=== PATIENT | female | born 1950 | race Asian ===

== ENCOUNTER → 2017-02-12 | Outpatient (CLI) | payer MEDICARE, BC ==
[~2017-02-12] MED LIST: DIGO250T PO; DILT120C80 PO; DILT120T3 PO; LISI-167 PO; REGADENOSON 0.4 MG/5 ML SYRINGE ONE; SIMV20TA3 PO; WARF3TAB PO
== END | disposition home or self-care (01) ==
LOC: CFH 08:21
PROVIDERS: ATTEND Nurse Practitioner Family
DX: I48.2 Chronic atrial fibrillation (principal)
CPT/HCPCS: 78452; 93017; A9502; J2785

== ENCOUNTER 2018-01-18 20:06 | Inpatient (IN) | payer MEDICARE, BC ==
[~2018-01-18] VITALS: Ht 157.5 cm; Wt 66.2 kg
[~2018-01-18 20:06] MED LIST changes: -REGADENOSON 0.4 MG/5 ML SYRINGE ONE
[2018-01-18] MEDS ORDERED: OMNIPAQUE 350 MG/ML, 100ML BOTTLE ONE (20:38)
[2018-01-18] MEDS ORDERED: MORPHINE SULFATE 4 MG/ML, 1ML ONE (20:48)
[2018-01-18] MEDS ORDERED: METOCLOPRAMIDE 5 MG/ML, 2ML ONE (20:49)
[2018-01-18 20:57] LABS: BASOPHILS # (AUTO) 0.08 x10^3/uL (0-0.1); BASOPHILS % (AUTO) 1 % (0-1); EOSINOPHILS # (AUTO) 0.26 x10^3/uL (0-0.4); EOSINOPHILS % (AUTO) 3 % (1-7); LYMPHOCYTES # (AUTO) 3.43 x10^3/uL (1-3.4); LYMPHOCYTES % (AUTO) 41 % (22-44); MD NO; MEAN CORPUSCULAR HEMOGLOBIN 31.3 pg (27.0-34.8); MEAN CORPUSCULAR HGB CONC 33.6 g/dL (32.4-35.8); MEAN CORPUSCULAR VOLUME 93.2 fL (80-100); MEAN PLATELET VOLUME 9.6 fL (7.4-10.4); MONOCYTES # (AUTO) 0.75 x10^3/uL (0.2-0.8); MONOCYTES % (AUTO) 9 % (2-9); NEUTROPHILS # (AUTO) 3.88 x10^3/uL (1.8-6.8); NEUTROPHILS % (AUTO) 46 % (42-75); PLATELET COUNT 246 x10^3/uL (130-400); RED BLOOD COUNT 4.52 x10^6/uL (3.82-5.3); RED CELL DISTRIBUTION WIDTH 14.4 % (9.6-15.2)
[2018-01-18] MEDS ORDERED: MORPHINE SULFATE 4 MG/ML, 1ML IVPush PRN (21:00)
[2018-01-18] MEDS ORDERED: METOCLOPRAMIDE 5 MG/ML, 2ML IVPush ONE (21:00)
[2018-01-18] MEDS ORDERED: SODIUM CHLORIDE FLUSH 10ML SYR IVF ONE (21:00)
[2018-01-18 21:07] LABS: INTERNATIONAL NORMALIZED RATIO 2.37 (0.93-1.1)
[2018-01-18 21:09] LABS: ALANINE AMINOTRANSFERASE 29 U/L (12-78); ALBUMIN 4.1 g/dL (3.4-5.0); ANION GAP 10 mmol/L (5-15); CALCIUM 8.7 mg/dL (8.5-10.1); CHLORIDE 109 mmol/L (98-107); CREATININE 1.37 mg/dL (0.55-1.02)
[2018-01-18 21:13] LABS: ALKALINE PHOSPHATASE 103 U/L (45-117); BILIRUBIN,TOTAL 1.1 mg/dL (0.2-1.0); TOTAL PROTEIN 8.3 g/dL (6.4-8.2); TROPONIN I < 0.015 ng/mL (0.000-0.045)
[2018-01-18 21:29] LABS: CULTURE INDICATED? YES; MICROSCOPIC INDICATED
[2018-01-18] MEDS ORDERED: LISI-424 PO (22:22)
[2018-01-18] MEDS ORDERED: CEFTRIAXONE PMX 1GM/50ML 50 ML IV ONE (23:00)
[2018-01-18] MEDS ORDERED: WARFARIN MECH. VALVE PROTOCOL 2.5 to 3.5 XX PRN (23:00)
[2018-01-18] MEDS ORDERED: SODIUM CHLORIDE 0.9% 1,000 ML IV SCH (23:04)
[2018-01-18] MEDS ORDERED: POLYETHYLENE GLYCOL 17 GM PACKET PO PRN (23:30)
[2018-01-18] MEDS ORDERED: LABETALOL 5MG/ML, 20ML IVPush PRN (23:30)
[2018-01-18] MEDS ORDERED: ONDANSETRON 2MG/ML, 2ML IVPush PRN (23:30)
[2018-01-18] MEDS ORDERED: BISACODYL 10 MG SUPP PR PRN (23:30)
[2018-01-18] MEDS ORDERED: ENALAPRILAT 1.25 MG/ML, 2ML IVPush PRN (23:30)
[2018-01-18] MEDS ORDERED: POTASSIUM CHLORIDE 40 MEQ in SODIUM CHLORIDE 0.9% 500 ML IV ONE (23:30)
[2018-01-18] MEDS ORDERED: ACETAMINOPHEN 325 MG TABLET PO PRN (23:30)
[2018-01-18] MEDS ORDERED: CEFTRIAXONE PMX 2GM/50ML 50 ML IV SCH (23:30)
[2018-01-18] MEDS ORDERED: hydrALAzine 20 MG/ML, 1ML IVPush PRN (23:30)
[2018-01-18 23:31] LABS: HCT (SEDRATE) 42.1 % (34.6-47.8)
[2018-01-18 23:33] LABS: FREE T4 (FREE THYROXINE) 1.23 ng/dL (0.76-1.46); THYROID STIMULATING HORMONE 6.04 mIU/L (0.358-3.740)
[2018-01-18 23:43] VITALS: BP 127/75
[2018-01-18] MEDS ORDERED: WARFARIN 2 MG TABLET PO-COUM ONE (23:45)
[2018-01-19 00:05] VITALS: BP 127/75
[2018-01-19] MEDS: SIMVASTATIN 20 MG TABLET PO SCH ×2 (00:14→20:15)
[2018-01-19] MEDS ORDERED: MORPHINE SULFATE 4 MG/ML, 1ML ONE ×4 (00:23→23:47)
[2018-01-19] MEDS: morphine SULFATE 10 MG/ML, 1ML IVPush PRN ×4 (00:26→23:49)
[2018-01-19] MEDS: METRONIDAZOLE PMX 500MG/100ML 100 ML IV SCH ×3 (01:26→20:15)
[2018-01-19 05:05] LABS: BASOPHILS # (AUTO) 0.04 x10^3/uL (0-0.1); BASOPHILS % (AUTO) 0 % (0-1); EOSINOPHILS # (AUTO) 0.01 x10^3/uL (0-0.4); EOSINOPHILS % (AUTO) 0 % (1-7); LYMPHOCYTES # (AUTO) 0.71 x10^3/uL (1-3.4); LYMPHOCYTES % (AUTO) 6 % (22-44); MD NO; MEAN CORPUSCULAR VOLUME 94.1 fL (80-100); MEAN PLATELET VOLUME 9.3 fL (7.4-10.4); MONOCYTES # (AUTO) 0.48 x10^3/uL (0.2-0.8); MONOCYTES % (AUTO) 4 % (2-9); NEUTROPHILS # (AUTO) 10.82 x10^3/uL (1.8-6.8); NEUTROPHILS % (AUTO) 90 % (42-75); PLATELET COUNT 222 x10^3/uL (130-400); RED BLOOD COUNT 4.34 x10^6/uL (3.82-5.3); RED CELL DISTRIBUTION WIDTH 14.4 % (9.6-15.2)
[2018-01-19 05:17] LABS: ALANINE AMINOTRANSFERASE 27 U/L (12-78); ALBUMIN 3.7 g/dL (3.4-5.0); ANION GAP 8 mmol/L (5-15); CALCIUM 8.4 mg/dL (8.5-10.1); CHLORIDE 111 mmol/L (98-107); CREATININE 0.92 mg/dL (0.55-1.02)
[2018-01-19 05:20] LABS: ALKALINE PHOSPHATASE 93 U/L (45-117); BILIRUBIN,TOTAL 0.8 mg/dL (0.2-1.0); CHOL/HDL RATIO 2.1; CHOLESTEROL, TOTAL 137 mg/dL (140-239); HDL CHOL % 48 % (28-40); HDL CHOLESTEROL (DIRECT) 66 mg/dL (40-60); LDL CHOLESTEROL,CALCULATED 57 mg/dL (54-169); LDL/HDL RATIO 0.9 (0.5-3.0); TOTAL PROTEIN 7.6 g/dL (6.4-8.2); TRIGLYCERIDES 72 mg/dL (50-200); VLDL CHOLESTEROL 14 mg/dL (0-25)
[2018-01-19 07:30] VITALS: BP 143/76
[2018-01-19 08:33] LABS: INTERNATIONAL NORMALIZED RATIO 2.32 (0.93-1.1); PROTHROMBIN TIME 23.5 Seconds (9.6-11.5)
[2018-01-19] MEDS ORDERED: HEPARIN 25,000 UNITS/500ML PMX 500 ML IV PRN ×2 (09:00→09:30)
[2018-01-19] MEDS ORDERED: DO NOT GIVE HEPARIN BOLUS MC SCH (09:30)
[2018-01-19 12:09] VITALS: BP 157/77
[2018-01-19] MEDS: LISINOPRIL 10 MG TABLET PO SCH (14:44)
[2018-01-19] MEDS: DILTIAZEM 120 MG CAP.ER.24H PO SCH (14:44)
[2018-01-19] MEDS: SODIUM CHLORIDE 0.9% 1,000 ML IV SCH (17:52)
[2018-01-19 19:25] VITALS: BP 124/70
[2018-01-19] MEDS ORDERED: CEFTRIAXONE 2 GM in DEXTROSE 5% 50 ML IV SCH (22:30)
[2018-01-20] VITALS (15 sets, daily range): BP systolic 83–150; BP diastolic 50–87
[2018-01-20] MEDS ORDERED: MORPHINE SULFATE 4 MG/ML, 1ML ONE ×3 (03:55→07:45)
[2018-01-20] MEDS: morphine SULFATE 10 MG/ML, 1ML IVPush PRN ×3 (03:57→07:48)
[2018-01-20] MEDS: SODIUM CHLORIDE 0.9% 1,000 ML IV SCH (03:58)
[2018-01-20] MEDS: METRONIDAZOLE PMX 500MG/100ML 100 ML IV SCH ×2 (03:58→12:00)
[2018-01-20 04:46] LABS: BASOPHILS # (AUTO) 0.03 x10^3/uL (0-0.1); BASOPHILS % (AUTO) 0 % (0-1); EOSINOPHILS # (AUTO) 0.04 x10^3/uL (0-0.4); EOSINOPHILS % (AUTO) 0 % (1-7); LYMPHOCYTES # (AUTO) 1.31 x10^3/uL (1-3.4); LYMPHOCYTES % (AUTO) 11 % (22-44); MD NO; MEAN CORPUSCULAR HEMOGLOBIN 31.4 pg (27.0-34.8); MEAN CORPUSCULAR HGB CONC 32.9 g/dL (32.4-35.8); MEAN CORPUSCULAR VOLUME 95.6 fL (80-100); MEAN PLATELET VOLUME 9.5 fL (7.4-10.4); MONOCYTES % (AUTO) 3 % (2-9); NEUTROPHILS # (AUTO) 9.86 x10^3/uL (1.8-6.8); NEUTROPHILS % (AUTO) 85 % (42-75); PLATELET COUNT 200 x10^3/uL (130-400); RED CELL DISTRIBUTION WIDTH 14.6 % (9.6-15.2)
[2018-01-20 04:47] LABS: INTERNATIONAL NORMALIZED RATIO 3.41 (0.93-1.1); PROTHROMBIN TIME 34.3 Seconds (9.6-11.5)
[2018-01-20 06:39] LABS: ALANINE AMINOTRANSFERASE 20 U/L (12-78); ALBUMIN 3.1 g/dL (3.4-5.0); ANION GAP 9 mmol/L (5-15); CALCIUM 8.1 mg/dL (8.5-10.1); CHLORIDE 113 mmol/L (98-107); CREATININE 0.85 mg/dL (0.55-1.02)
[2018-01-20 06:41] LABS: ALKALINE PHOSPHATASE 78 U/L (45-117); BILIRUBIN,TOTAL 1.2 mg/dL (0.2-1.0)
[2018-01-20] MEDS: DILTIAZEM 120 MG CAP.ER.24H PO SCH (09:00)
[2018-01-20] MEDS: LISINOPRIL 10 MG TABLET PO SCH (09:00)
[2018-01-20] MEDS ORDERED: BUPIVACAINE/PF 0.5% ONE (10:33)
[2018-01-20] MEDS ORDERED: MIDAZOLAM 1 MG/ML, 2ML ONE (11:11)
[2018-01-20] MEDS ORDERED: CEFOTETAN 2 GM ONE (11:35)
[2018-01-20] MEDS ORDERED: SUGAMMADEX 200 MG/2 ML IVPush ONE ×2 (11:35→13:40)
[2018-01-20] MEDS ORDERED: ROCURONIUM 10 MG/ML,10ML ONE (11:35)
[2018-01-20] MEDS ORDERED: PROPOFOL 10 MG/ML, 20ML ONE (11:35)
[2018-01-20] MEDS ORDERED: FENTANYL PF 250 MCG/5ML ONE ×2 (11:54→12:27)
[2018-01-20] MEDS ORDERED: PHYTONADIONE 10 MG in SODIUM CHLORIDE 0.9% 50 ML IV ONE (12:30)
[2018-01-20 12:49] LABS: INTERNATIONAL NORMALIZED RATIO 2.1 (0.93-1.1); PROTHROMBIN TIME 21.3 Seconds (9.6-11.5)
[2018-01-20 13:01] LABS: BASOPHILS % (AUTO) 0 % (0-1); EOSINOPHILS # (AUTO) 0.02 x10^3/uL (0-0.4); EOSINOPHILS % (AUTO) 0 % (1-7); LYMPHOCYTES # (AUTO) 1.22 x10^3/uL (1-3.4); LYMPHOCYTES % (AUTO) 12 % (22-44); MD NO; MEAN CORPUSCULAR HEMOGLOBIN 30.9 pg (27.0-34.8); MEAN CORPUSCULAR HGB CONC 32.9 g/dL (32.4-35.8); MEAN CORPUSCULAR VOLUME 94.1 fL (80-100); MEAN PLATELET VOLUME 9.2 fL (7.4-10.4); MONOCYTES # (AUTO) 0.24 x10^3/uL (0.2-0.8); MONOCYTES % (AUTO) 2 % (2-9); NEUTROPHILS # (AUTO) 9.14 x10^3/uL (1.8-6.8); NEUTROPHILS % (AUTO) 86 % (42-75); PLATELET COUNT 157 x10^3/uL (130-400); RED BLOOD COUNT 3.42 x10^6/uL (3.82-5.3); RED CELL DISTRIBUTION WIDTH 14.6 % (9.6-15.2)
[2018-01-20] MEDS ORDERED: MEPERIDINE/PF 25MG/0.5ML IVPush PRN (13:30)
[2018-01-20] MEDS ORDERED: FENTANYL PF 100 MCG/2ML IV PRN (13:30)
[2018-01-20] MEDS ORDERED: LABETALOL 5MG/ML, 20ML IV PRN (13:30)
[2018-01-20] MEDS ORDERED: morphine SULFATE 10 MG/ML, 1ML IV PRN (13:30)
[2018-01-20] MEDS ORDERED: ONDANSETRON 2MG/ML, 2ML IVPush PRN (13:30)
[2018-01-20] MEDS ORDERED: HYDROmorphone 2 MG/ML, 1ML ONE (13:55)
[2018-01-20] MEDS ORDERED: FENTANYL PF 100 MCG/2ML ONE (13:55)
[2018-01-20] MEDS: HYDROmorphone 1 MG/ML, 1ML IV PRN ×2 (14:19→15:49)
[2018-01-20] MEDS ORDERED: SCOPOLAMINE PATCH, 1.5MG PATCH.TD72 TD PRN (17:00)
[2018-01-20] MEDS ORDERED: CALCIUM CARBONATE 500 MG TAB.CHEW PO PRN (17:00)
[2018-01-20] MEDS ORDERED: DEXAMETHASONE 4 MG/ML, 1ML IVPush PRN (17:00)
[2018-01-20] MEDS ORDERED: DIPHENHYDRAMINE 50 MG/ML, 1ML IVPush PRN (17:00)
[2018-01-20] MEDS ORDERED: ONDANSETRON 2MG/ML, 2ML IV PRN (17:00)
[2018-01-20] MEDS: ACETAMINOPHEN 500 MG TABLET PO SCH ×2 (18:11→23:05)
[2018-01-20] MEDS: PIPERACILLIN/TAZO/PMX 3.375GM 50 ML IV SCH ×2 (18:11→23:04)
[2018-01-20] MEDS: D5%-0.45NACL+KCL 20MEQ 1,000 ML IV SCH (18:30)
[2018-01-20] MEDS ORDERED: SODIUM CHLORIDE 0.9% 500 ML IV ONE (20:23)
[2018-01-20] MEDS ORDERED: SODIUM CHLORIDE 0.9%, 500ML IVBOLUS STA (21:50)
[2018-01-20] MEDS: SIMVASTATIN 20 MG TABLET PO SCH (23:04)
[2018-01-20 23:28] LABS: BASOPHILS # (AUTO) 0.02 x10^3/uL (0-0.1); BASOPHILS % (AUTO) 0 % (0-1); EOSINOPHILS % (AUTO) 0 % (1-7); LYMPHOCYTES % (AUTO) 10 % (22-44); MD NO; MEAN CORPUSCULAR HEMOGLOBIN 31.1 pg (27.0-34.8); MEAN CORPUSCULAR HGB CONC 32.6 g/dL (32.4-35.8); MEAN CORPUSCULAR VOLUME 95.3 fL (80-100); MONOCYTES # (AUTO) 0.57 x10^3/uL (0.2-0.8); MONOCYTES % (AUTO) 6 % (2-9); NEUTROPHILS # (AUTO) 8.02 x10^3/uL (1.8-6.8); NEUTROPHILS % (AUTO) 84 % (42-75); PLATELET COUNT 184 x10^3/uL (130-400); RED BLOOD COUNT 2.58 x10^6/uL (3.82-5.3); RED CELL DISTRIBUTION WIDTH 14.8 % (9.6-15.2)
[2018-01-20 23:35] LABS: INTERNATIONAL NORMALIZED RATIO 1.48 (0.93-1.1); PROTHROMBIN TIME 15.1 Seconds (9.6-11.5)
[2018-01-21] VITALS (14 sets, daily range): BP systolic 83–126; BP diastolic 54–76
[2018-01-21] MEDS ORDERED: HEPARIN 25,000 UNITS/500ML PMX 500 ML IV PRN (00:30)
[2018-01-21] MEDS ORDERED: HEPARIN 5,000 UNITS/ML, 1ML IV PRN (00:30)
[2018-01-21] MEDS: ACETAMINOPHEN 500 MG TABLET PO SCH ×4 (05:28→23:03)
[2018-01-21] MEDS: PIPERACILLIN/TAZO/PMX 3.375GM 50 ML IV SCH ×4 (05:29→23:02)
[2018-01-21 05:38] LABS: BASOPHILS # (AUTO) 0.09 x10^3/uL (0-0.1); BASOPHILS % (AUTO) 1 % (0-1); EOSINOPHILS # (AUTO) 0.01 x10^3/uL (0-0.4); EOSINOPHILS % (AUTO) 0 % (1-7); LYMPHOCYTES # (AUTO) 1.33 x10^3/uL (1-3.4); LYMPHOCYTES % (AUTO) 16 % (22-44); MD NO; MEAN CORPUSCULAR HGB CONC 34.4 g/dL (32.4-35.8); MEAN CORPUSCULAR VOLUME 93.1 fL (80-100); MEAN PLATELET VOLUME 9.4 fL (7.4-10.4); MONOCYTES # (AUTO) 0.66 x10^3/uL (0.2-0.8); MONOCYTES % (AUTO) 8 % (2-9); NEUTROPHILS # (AUTO) 6.09 x10^3/uL (1.8-6.8); NEUTROPHILS % (AUTO) 74 % (42-75); PLATELET COUNT 134 x10^3/uL (130-400); RED BLOOD COUNT 2.44 x10^6/uL (3.82-5.3); RED CELL DISTRIBUTION WIDTH 14.4 % (9.6-15.2)
[2018-01-21 05:47] LABS: INTERNATIONAL NORMALIZED RATIO 1.39 (0.93-1.1); PROTHROMBIN TIME 14.2 Seconds (9.6-11.5)
[2018-01-21 06:00] LABS: CHLORIDE 118 mmol/L (98-107)
[2018-01-21 06:06] LABS: ALANINE AMINOTRANSFERASE 14 U/L (12-78); ALBUMIN 2.1 g/dL (3.4-5.0); ALKALINE PHOSPHATASE 43 U/L (45-117); ANION GAP 7 mmol/L (5-15); TOTAL PROTEIN 4.6 g/dL (6.4-8.2)
[2018-01-21 06:19] LABS: CALCIUM 5.9 mg/dL (8.5-10.1)
[2018-01-21] MEDS: DILTIAZEM 120 MG CAP.ER.24H PO SCH (08:00)
[2018-01-21] MEDS ORDERED: DIGOXIN 0.125 MG TABLET PO SCH (12:00)
[2018-01-21] MEDS: D5%-0.45NACL+KCL 20MEQ 1,000 ML IV SCH (14:57)
[2018-01-21] MEDS ORDERED: DIGOXIN 0.125 MG TABLET PO ONE (18:00)
[2018-01-21] MEDS: OXYcodone IR 5MG TABLET PO PRN (20:21)
[2018-01-21] MEDS: CALCIUM CARBONATE 500 MG TABLET PO SCH (21:04)
[2018-01-21] MEDS: SIMVASTATIN 20 MG TABLET PO SCH (21:04)
[2018-01-22 04:27] VITALS: BP 102/67
[2018-01-22] MEDS: ACETAMINOPHEN 500 MG TABLET PO SCH ×4 (05:41→21:59)
[2018-01-22] MEDS: PIPERACILLIN/TAZO/PMX 3.375GM 50 ML IV SCH ×4 (05:42→23:01)
[2018-01-22 06:05] LABS: INTERNATIONAL NORMALIZED RATIO 1.17 (0.93-1.1)
[2018-01-22 06:11] LABS: ALBUMIN 2.7 g/dL (3.4-5.0)
[2018-01-22 06:18] LABS: ALANINE AMINOTRANSFERASE 19 U/L (12-78); ANION GAP 7 mmol/L (5-15); CHLORIDE 108 mmol/L (98-107); CREATININE 0.68 mg/dL (0.55-1.02)
[2018-01-22 06:33] LABS: ALKALINE PHOSPHATASE 57 U/L (45-117); BILIRUBIN,TOTAL 1.5 mg/dL (0.2-1.0); TOTAL PROTEIN 6.3 g/dL (6.4-8.2)
[2018-01-22 06:57] VITALS: BP 114/75
[2018-01-22 07:02] LABS: MEAN CORPUSCULAR HEMOGLOBIN 31.1 pg (27.0-34.8); MEAN CORPUSCULAR HGB CONC 33.5 g/dL (32.4-35.8); MEAN CORPUSCULAR VOLUME 92.9 fL (80-100); PLATELET COUNT 179 x10^3/uL (130-400); RED BLOOD COUNT 3.15 x10^6/uL (3.82-5.3); RED CELL DISTRIBUTION WIDTH 14.6 % (9.6-15.2)
[2018-01-22] MEDS ORDERED: DIGOXIN 0.25 MG TABLET PO SCH (09:00)
[2018-01-22] MEDS: DIGOXIN 0.125 MG TABLET PO SCH (10:05)
[2018-01-22] MEDS: DILTIAZEM 120 MG CAP.ER.24H PO SCH (10:05)
[2018-01-22] MEDS: CALCIUM CARBONATE 500 MG TABLET PO SCH ×2 (10:05→21:59)
[2018-01-22] MEDS: D5%-0.45NACL+KCL 20MEQ 1,000 ML IV SCH (11:00)
[2018-01-22 14:45] VITALS: BP 143/90
[2018-01-22] MEDS: DOCUSATE 100 MG CAPSULE PO PRN ×2 (14:50→21:59)
[2018-01-22] MEDS: OXYcodone IR 5MG TABLET PO PRN (17:05)
[2018-01-22 19:57] VITALS: BP 101/67
[2018-01-22] MEDS ORDERED: POLYETHYLENE GLYCOL 17 GM PACKET NG PRN (20:30)
[2018-01-22] MEDS: SIMVASTATIN 20 MG TABLET PO SCH (21:58)
[2018-01-23 03:59] VITALS: BP 112/72
[2018-01-23] MEDS: PIPERACILLIN/TAZO/PMX 3.375GM 50 ML IV SCH ×4 (05:19→23:19)
[2018-01-23] MEDS: ACETAMINOPHEN 500 MG TABLET PO SCH ×4 (05:20→20:40)
[2018-01-23 05:53] LABS: BASOPHILS # (AUTO) 0.02 x10^3/uL (0-0.1); BASOPHILS % (AUTO) 0 % (0-1); EOSINOPHILS # (AUTO) 0.11 x10^3/uL (0-0.4); EOSINOPHILS % (AUTO) 1 % (1-7); LYMPHOCYTES # (AUTO) 1.37 x10^3/uL (1-3.4); LYMPHOCYTES % (AUTO) 14 % (22-44); MD NO; MEAN CORPUSCULAR HGB CONC 34.1 g/dL (32.4-35.8); MEAN CORPUSCULAR VOLUME 93.8 fL (80-100); MEAN PLATELET VOLUME 9.1 fL (7.4-10.4); MONOCYTES # (AUTO) 0.72 x10^3/uL (0.2-0.8); MONOCYTES % (AUTO) 7 % (2-9); NEUTROPHILS # (AUTO) 7.78 x10^3/uL (1.8-6.8); NEUTROPHILS % (AUTO) 78 % (42-75); PLATELET COUNT 192 x10^3/uL (130-400); RED BLOOD COUNT 2.96 x10^6/uL (3.82-5.3); RED CELL DISTRIBUTION WIDTH 14.6 % (9.6-15.2)
[2018-01-23 05:56] LABS: INTERNATIONAL NORMALIZED RATIO 1.08 (0.93-1.1); PROTHROMBIN TIME 11.1 Seconds (9.6-11.5)
[2018-01-23 06:06] LABS: CHLORIDE 106 mmol/L (98-107)
[2018-01-23 06:13] LABS: ANION GAP 8 mmol/L (5-15); CALCIUM 8.4 mg/dL (8.5-10.1); CREATININE 0.73 mg/dL (0.55-1.02)
[2018-01-23 07:04] VITALS: BP 135/72
[2018-01-23] MEDS ORDERED: HEPARIN wt. based STROKE protocol MC PRN (09:30)
[2018-01-23] MEDS: DILTIAZEM 120 MG CAP.ER.24H PO SCH (09:40)
[2018-01-23] MEDS: DIGOXIN 0.125 MG TABLET PO SCH (09:40)
[2018-01-23] MEDS: CALCIUM CARBONATE 500 MG TABLET PO SCH ×2 (09:40→20:40)
[2018-01-23] MEDS ORDERED: HEPARIN 5,000 UNITS/ML, 1ML ONE (10:34)
[2018-01-23] MEDS: HEPARIN 25,000 UNITS/500ML PMX 500 ML IV PRN (10:45)
[2018-01-23 12:37] LABS: OCCULT BLOOD POSITIVE (NEGATIVE)
[2018-01-23 14:44] VITALS: BP 134/82
[2018-01-23 18:50] VITALS: BP 125/76
[2018-01-23] MEDS: SIMVASTATIN 20 MG TABLET PO SCH (20:41)
[2018-01-24 00:09] LABS: MD YES; MEAN CORPUSCULAR HEMOGLOBIN 32.1 pg (27.0-34.8); MEAN CORPUSCULAR HGB CONC 33.9 g/dL (32.4-35.8); MEAN CORPUSCULAR VOLUME 94.5 fL (80-100); MEAN PLATELET VOLUME 9.1 fL (7.4-10.4); PLATELET COUNT 194 x10^3/uL (130-400); RED BLOOD COUNT 3.03 x10^6/uL (3.82-5.3); RED CELL DISTRIBUTION WIDTH 14.2 % (9.6-15.2)
[2018-01-24 00:12] LABS: EOS% (MANUAL) 5 % (1-7); LYMPH#(MANUAL) 2.18 x10^3/uL (1-3.4); LYMPHS% (MANUAL) 28 % (22-44); MONOS#(MANUAL) 0.78 x10^3/uL (0.3-2.7); MONOS% (MANUAL) 10 % (2-9); SEG#(MANUAL) 4.37 x10^3/uL (1.8-6.8); SEGS% (MANUAL) 56 % (42-75)
[2018-01-24 00:13] LABS: ANISOCYTOSIS 1+; BASOS#(MANUAL) 0.08 x10^3/uL (0-0.1); BASOS% (MANUAL) 1 % (0-1); EOS#(MANUAL) 0.39 x10^3/uL (0.0-0.4); NRBC % (MANUAL) 6 % (0-1); OVALOCYTES 1+; POLYCHROMASIA 1+
[2018-01-24 00:15] LABS: <PLATELET ESTIMATE> ADEQUATE; <PLT MORPHOLOGY> NORMAL PLT MORPH
[2018-01-24 01:50] VITALS: BP 131/60
[2018-01-24] MEDS: PIPERACILLIN/TAZO/PMX 3.375GM 50 ML IV SCH ×3 (05:31→11:00)
[2018-01-24] MEDS: ACETAMINOPHEN 500 MG TABLET PO SCH ×4 (05:31→22:46)
[2018-01-24 07:03] LABS: INTERNATIONAL NORMALIZED RATIO 1.11 (0.93-1.1); PROTHROMBIN TIME 11.4 Seconds (9.6-11.5)
[2018-01-24 07:20] VITALS: BP 129/72
[2018-01-24] MEDS: DILTIAZEM 120 MG CAP.ER.24H PO SCH (07:54)
[2018-01-24] MEDS: DIGOXIN 0.125 MG TABLET PO SCH (07:54)
[2018-01-24] MEDS: CALCIUM CARBONATE 500 MG TABLET PO SCH ×2 (07:54→20:56)
[2018-01-24] MEDS: HEPARIN 25,000 UNITS/500ML PMX 500 ML IV PRN (13:05)
[2018-01-24 13:35] VITALS: BP 122/70
[2018-01-24 17:00] VITALS: BP 136/66
[2018-01-24] MEDS ORDERED: WARFARIN 5 MG TABLET PO-COUM ONE (18:00)
[2018-01-24 19:56] VITALS: BP 122/73
[2018-01-24] MEDS: AMOXICILLIN/CLAV 875-125MG TABLET PO SCH (20:56)
[2018-01-24] MEDS: SIMVASTATIN 20 MG TABLET PO SCH (20:57)
[2018-01-24] MEDS: DIPHENHYDRAMINE 25 MG CAPSULE PO PRN (22:46)
[2018-01-25] MEDS: DIPHENHYDRAMINE 25 MG CAPSULE PO PRN ×2 (01:37→21:38)
[2018-01-25 01:48] VITALS: BP 144/81
[2018-01-25] MEDS: ACETAMINOPHEN 500 MG TABLET PO SCH ×2 (05:18→11:00)
[2018-01-25 06:00] LABS: INTERNATIONAL NORMALIZED RATIO 1.24 (0.93-1.1); PROTHROMBIN TIME 12.7 Seconds (9.6-11.5)
[2018-01-25 08:17] VITALS: BP 167/87
[2018-01-25] MEDS: AMOXICILLIN/CLAV 875-125MG TABLET PO SCH ×2 (08:18→21:31)
[2018-01-25] MEDS: DILTIAZEM 120 MG CAP.ER.24H PO SCH (08:18)
[2018-01-25] MEDS: CALCIUM CARBONATE 500 MG TABLET PO SCH ×2 (08:18→21:32)
[2018-01-25] MEDS: DIGOXIN 0.125 MG TABLET PO SCH (08:19)
[2018-01-25] MEDS: WARFARIN MECH. VALVE PROTOCOL 2.5 to 3.5 XX SCH (09:00)
[2018-01-25 13:51] VITALS: BP 130/83
[2018-01-25] MEDS: HEPARIN 25,000 UNITS/500ML PMX 500 ML IV PRN (13:57)
[2018-01-25] MEDS ORDERED: WARFARIN 5 MG TABLET PO-COUM SCH (18:00)
[2018-01-25 18:41] VITALS: BP 134/70
[2018-01-25] MEDS: SIMVASTATIN 20 MG TABLET PO SCH (21:31)
[2018-01-26 01:54] VITALS: BP 142/75
[2018-01-26 05:29] LABS: INTERNATIONAL NORMALIZED RATIO 1.71 (0.93-1.1); PROTHROMBIN TIME 17.4 Seconds (9.6-11.5)
[2018-01-26 08:00] VITALS: BP 144/85
[2018-01-26] MEDS: WARFARIN MECH. VALVE PROTOCOL 2.5 to 3.5 XX SCH (09:00)
[2018-01-26] MEDS: CALCIUM CARBONATE 500 MG TABLET PO SCH ×2 (10:18→21:45)
[2018-01-26] MEDS: DILTIAZEM 120 MG CAP.ER.24H PO SCH (10:18)
[2018-01-26] MEDS: DIGOXIN 0.125 MG TABLET PO SCH (10:19)
[2018-01-26] MEDS: AMOXICILLIN/CLAV 875-125MG TABLET PO SCH ×2 (10:19→21:45)
[2018-01-26 14:27] VITALS: BP 130/78
[2018-01-26] MEDS ORDERED: WARFARIN 3 MG TABLET PO-COUM SCH (18:00)
[2018-01-26] MEDS ORDERED: WARFARIN 5 MG TABLET PO-COUM SCH (18:00)
[2018-01-26 19:43] VITALS: BP 131/79
[2018-01-26] MEDS: HEPARIN 25,000 UNITS/500ML PMX 500 ML IV PRN (19:43)
[2018-01-26] MEDS: DIPHENHYDRAMINE 25 MG CAPSULE PO PRN (21:45)
[2018-01-26] MEDS: SIMVASTATIN 20 MG TABLET PO SCH (21:45)
[2018-01-27 02:17] VITALS: BP 129/76
[2018-01-27 05:22] LABS: INTERNATIONAL NORMALIZED RATIO 2.28 (0.93-1.1); PROTHROMBIN TIME 23.1 Seconds (9.6-11.5)
[2018-01-27 07:20] VITALS: BP 131/77
[2018-01-27] MEDS: WARFARIN MECH. VALVE PROTOCOL 2.5 to 3.5 XX SCH (08:35)
[2018-01-27] MEDS: AMOXICILLIN/CLAV 875-125MG TABLET PO SCH ×2 (08:36→22:00)
[2018-01-27] MEDS: DILTIAZEM 120 MG CAP.ER.24H PO SCH (08:36)
[2018-01-27] MEDS: CALCIUM CARBONATE 500 MG TABLET PO SCH ×2 (08:36→22:00)
[2018-01-27] MEDS: DIGOXIN 0.125 MG TABLET PO SCH (08:36)
[2018-01-27 13:50] VITALS: BP 134/74
[2018-01-27] MEDS: HEPARIN 25,000 UNITS/500ML PMX 500 ML IV PRN (17:32)
[2018-01-27] MEDS ORDERED: WARFARIN 5 MG TABLET PO-COUM SCH (18:00)
[2018-01-27 19:05] VITALS: BP 133/79
[2018-01-27] MEDS: SIMVASTATIN 20 MG TABLET PO SCH (22:01)
[2018-01-28 02:07] VITALS: BP 124/67
[2018-01-28 05:03] LABS: INTERNATIONAL NORMALIZED RATIO 2.45 (0.93-1.1); PROTHROMBIN TIME 24.8 Seconds (9.6-11.5)
[2018-01-28 07:25] VITALS: BP 148/90
[2018-01-28] MEDS: WARFARIN MECH. VALVE PROTOCOL 2.5 to 3.5 XX SCH (09:00)
[2018-01-28] MEDS: CALCIUM CARBONATE 500 MG TABLET PO SCH (09:00)
[2018-01-28] MEDS ORDERED: ENOXAPARIN 60 MG/0.6 ML SQ SCH (09:30)
[2018-01-28] MEDS ORDERED: DIGO125T PO (09:33)
[2018-01-28] MEDS ORDERED: ENOX60SY4 SQ (09:33)
[2018-01-28] MEDS ORDERED: WARF3TAB PO (09:33)
[2018-01-28] MEDS ORDERED: AMOX1TAB12 PO (09:37)
[2018-01-28] MEDS: AMOXICILLIN/CLAV 875-125MG TABLET PO SCH (12:42)
[2018-01-28] MEDS: DIGOXIN 0.125 MG TABLET PO SCH (12:42)
[2018-01-28] MEDS: DILTIAZEM 120 MG CAP.ER.24H PO SCH (12:43)
[2018-01-28] MEDS ORDERED: WARFARIN 5 MG TABLET PO-COUM ONE ×2 (12:46→18:00)
[2018-01-28 13:24] VITALS: BP 138/72
== END 2018-01-28 16:25 | disposition home or self-care (01) | DRG 853 ==
LOC: ED 22:02 → EDIP 23:05 → 4EST 23:34 → 4NOR 01-20 16:13 → 5SO 01-21 00:07 → 4NOR 01-24 16:41 → DCLOUNGE 01-28 16:00
PROVIDERS: ADMIT Internal Medicine; ATTEND Internal Medicine
PROC: 0DBB4ZZ Excision of Ileum, Percutaneous Endoscopic Approach (ICD-10-PCS; 2018-01-20)
PROC: 30233K1 Transfusion of Nonautologous Frozen Plasma into Peripheral Vein, Percutaneous Approach (ICD-10-PCS; 2018-01-20)
PROC: 0DTF4ZZ Resection of Right Large Intestine, Percutaneous Endoscopic Approach (ICD-10-PCS; principal; 2018-01-20 12:30)
PROC: 30233N1 Transfusion of Nonautologous Red Blood Cells into Peripheral Vein, Percutaneous Approach (ICD-10-PCS; 2018-01-21)
DX: A41.9 Sepsis, unspecified organism (principal); K63.1 Perforation of intestine (nontraumatic); N17.9 Acute kidney failure, unspecified; K55.9 Vascular disorder of intestine, unspecified; E87.2 Acidosis; D68.59 Other primary thrombophilia; I27.20 Pulmonary hypertension, unspecified; I48.2 Chronic atrial fibrillation; N39.0 Urinary tract infection, site not specified; E87.6 Hypokalemia; Z85.3 Personal history of malignant neoplasm of breast; Z92.21 Personal history of antineoplastic chemotherapy; Z92.3 Personal history of irradiation; I10 Essential (primary) hypertension; D50.0 Iron deficiency anemia secondary to blood loss (chronic); E78.5 Hyperlipidemia, unspecified; I49.5 Sick sinus syndrome; Z79.01 Long term (current) use of anticoagulants; Z95.0 Presence of cardiac pacemaker; Z95.1 Presence of aortocoronary bypass graft; Z95.2 Presence of prosthetic heart valve
CPT/HCPCS: 36415; 71045; 71046; 74018; 74177; 80048; 80053; 80061; 80162; 81001; 82272; 82330; 82962; 83010; 83036; 83605; 83615; 83690; 83735; 84439; 84443; 84484; 84597; 85014; 85018; 85025; 85027; 85379; 85520; 85610; 85651; 85730; 86140; 86850; 86900; 86923; 87077; 87086; 87186; 88307; 93005; 96374; 96375; J0696; J1100; J1170; J1644; J1650; J2250; J2405; J2543; J2704; J3010; J3430; J3480; J3490; Q9967; J2270; J2765; J7030; J7040; P9016; P9017; Q0163; S0074

== ENCOUNTER 2019-10-05 08:48 | Outpatient (CLI) | payer MEDICARE, BC ==
[~2019-10-05 08:48] MED LIST changes: +AMOX1TAB12 PO; +DIGO125T PO; +ENOX60SY4 SQ; +LISI-424 PO
== END 2019-10-05 23:59 | disposition home or self-care (01) ==
LOC: CFH 08:48
PROVIDERS: ATTEND Internal Medicine Cardiovascular Disease
DX: I08.8 Other rheumatic multiple valve diseases (principal); I10 Essential (primary) hypertension
CPT/HCPCS: 93306